=== PATIENT | female | born 1995 | race Caucasian/White ===

== ENCOUNTER → 2021-09-14 | Outpatient (REF) ==
[~2021-09-14] MED LIST: IBUP80TA PO; TYLE325T5 PO
== END ==
LOC: M LABSMTC 11:07
PROVIDERS: ATTEND Pediatrics
DX: Z20.822 Contact with and (suspected) exposure to COVID-19 (principal)

== ENCOUNTER → 2021-09-18 | Outpatient (REF) | LOC: M EMP 08:01 | PROVIDERS: ATTEND Family Medicine | DX: Z11.52 Encounter for screening for COVID-19 (principal); Z20.822 Contact with and (suspected) exposure to COVID-19 ==

== ENCOUNTER → 2021-11-30 | Outpatient (REF) | LOC: M LABSMTC 13:28 | PROVIDERS: ATTEND Pediatrics | DX: Z20.822 Contact with and (suspected) exposure to COVID-19 (principal) ==

== ENCOUNTER → 2022-01-15 | Outpatient (REF) ==
[2022-01-15 12:41] LABS: RSV AMPLIFICATION NEGATIVE (NEGATIVE)
== END ==
LOC: M EMP 11:11
PROVIDERS: ATTEND Family Medicine
DX: Z20.822 Contact with and (suspected) exposure to COVID-19 (principal); Z11.59 Encounter for screening for other viral diseases

== ENCOUNTER 2023-07-18 02:46 | Emergency (ER) | payer BC, OTHER ==
[2023-07-18] MEDS ORDERED: NS 1,000 ML IV ONE (02:55)
[2023-07-18] MEDS ORDERED: BOOSTRIX VACCINE (TETANUS/DIPHTH/ACEL. PERTUSSIS) 0.5ML SYR IM.IMMUN ONE (03:00)
[2023-07-18] MEDS ORDERED: ISOVUE-370 76% 100ML VIAL As Ordered ONE (03:10)
[2023-07-18 03:15] LABS: HEMOGLOBIN 13.8 g/dl (12.0-15.5); MEAN CORPUSCULAR HEMOGLOBIN 32.4 pg (27.0-33.0); MEAN CORPUSCULAR HGB CONC 33.7 g/dl (32.0-36.5); MEAN CORPUSCULAR VOLUME 96.2 fl (80.0-96.0); PLATELET COUNT, AUTOMATED 263 10^3/uL (150-450); RED BLOOD COUNT 4.26 10^6/uL (4.00-5.40); WHITE BLOOD COUNT 12.5 10^3/uL (4.0-10.0)
[2023-07-18] MEDS ORDERED: MORPHINE 2 MG/ML 1ML VIAL IV ONE ×2 (03:30→04:55)
[2023-07-18] MEDS ORDERED: ONDANSETRON 4MG 2ML VIAL IV ONE (03:30)
[2023-07-18 03:34] LABS: ETHYL ALCOHOL (ETHANOL) 0.225 % (0.000-0.010)
[2023-07-18 03:39] LABS: INR 1.2; PROTHROMBIN TIME 14.9 SECONDS (12.5-14.5)
[2023-07-18 03:50] LABS: ATYPICAL LYMPH 4 % (0-5); BLOOD UREA NITROGEN 9 MG/DL (9-23); CALCIUM LEVEL 8.4 MG/DL (8.5-10.1); CARBON DIOXIDE LEVEL 23 MMOL/L (20-31); CHLORIDE LEVEL 105 MMOL/L (98-107); EOSINOPHILS 1 % (0-3); GLOMERULAR FILTRATION RATE > 60.0 (>60); GLUCOSE, FASTING 136 MG/DL (60-100); LYMPHOCYTES 36 % (16-44); MONOCYTES 6 % (0-5); NEUTROPHILS 53 % (28-66); POTASSIUM SERUM 4.9 MMOL/L (3.5-5.1); SODIUM LEVEL 138 MMOL/L (136-145)
[2023-07-18 03:52] LABS: ANISOCYTOSIS 1+; MICROCYTOSIS 1+; PLATELET ESTIMATE NORMAL (NORMAL)
[2023-07-18] MEDS ORDERED: DERMABOND TOPICAL SKIN ADHESIVE TOP ONE (05:30)
[2023-07-18 10:01] VITALS: BP 122/81; TEMP 97.8; O2SAT 98
== END 2023-07-18 10:16 | disposition home or self-care (01) ==
LOC: M ED 02:46
DX: S52.351A Displaced comminuted fracture of shaft of radius, right arm, initial encounter for closed fracture (principal); S52.611A Displaced fracture of right ulna styloid process, initial encounter for closed fracture; S01.81XA Laceration without foreign body of other part of head, initial encounter; V09.20XA Pedestrian injured in traffic accident involving unspecified motor vehicles, initial encounter; J45.909 Unspecified asthma, uncomplicated; F32.A Depression, unspecified; F12.10 Cannabis abuse, uncomplicated; F10.10 Alcohol abuse, uncomplicated; Z79.1 Long term (current) use of non-steroidal anti-inflammatories (NSAID); Z23 Encounter for immunization
CPT/HCPCS: 12013; 70450; 71260; 72125; 73090; 73110; 73130; 74177; 80047; 80048; 82077; 84702; 85025; 85610; 85730; 86850; 86900; 86901; 90471; 90715; 93041; 94760; 96374; 96375; 99285; J2405; Q9967